=== PATIENT | female | born 1960 | race Caucasian/White ===

== ENCOUNTER 2017-06-06 11:43 | Emergency (ER) | payer MEDICARE, MEDICAID ==
[~2017-06-06] VITALS: Ht 162.6 cm; Wt 56.8 kg
[2017-06-06 11:45] VITALS: TEMP 97.3
[2017-06-06] MEDS ORDERED: FLEXERIL 1010 MG/TAB PO (12:57)
[2017-06-06] MEDS ORDERED: NEURAPTINE30 ML PO (12:57)
[2017-06-06] MEDS ORDERED: PEPCID AC 10MG10 MG PO (12:58)
[2017-06-06] MEDS ORDERED: MOBIC 7.5MG7.5 MG PO (13:57)
[2017-06-06 14:18] VITALS: BP 185/82; PULSE 63
== END 2017-06-06 14:10 | disposition home or self-care (01) ==
LOC: COL.ER 11:43
DX: S93.401A Sprain of unspecified ligament of right ankle, initial encounter (principal); W22.8XXA Striking against or struck by other objects, initial encounter; Y92.009 Unspecified place in unspecified non-institutional (private) residence as the place of occurrence of the external cause

== ENCOUNTER 2017-10-29 14:51 | Emergency (ER) | payer MEDICARE, MEDICAID ==
[~2017-10-29] VITALS: Ht 162.6 cm; Wt 54.5 kg
[~2017-10-29 14:51] MED LIST: FLEXERIL 1010 MG/TAB PO; MOBIC 7.5MG7.5 MG PO; NEURAPTINE30 ML PO; PEPCID AC 10MG10 MG PO
[2017-10-29 15:04] VITALS: BP 115/70; TEMP 98.6
[2017-10-29] MEDS ORDERED: VOLTAREN GEL 1%1 TU TP (15:35)
[2017-10-29] MEDS ORDERED: NEURONTIN300 MG/CAP PO (15:35)
[2017-10-29] MEDS ORDERED: PROAIR HFA0.09 MG/AC IH (15:36)
[2017-10-29] MEDS ORDERED: PEN-VEE K500 MG PO (15:45)
[2017-10-29 16:10] VITALS: PULSE 75
== END 2017-10-29 16:10 | disposition home or self-care (01) ==
LOC: COL.ER 14:51
DX: K02.9 Dental caries, unspecified (principal); F17.210 Nicotine dependence, cigarettes, uncomplicated; F12.90 Cannabis use, unspecified, uncomplicated; Z90.710 Acquired absence of both cervix and uterus; Z98.890 Other specified postprocedural states